=== PATIENT | male | born 1995 | race Caucasian/White ===

== ENCOUNTER 2018-11-03 18:52 | Observation (INO) | payer OTHER ==
[2018-11-03] MEDS ORDERED: Ondansetron 4 MG/2 ML SDV IVPUSH ONE (19:04)
[2018-11-03] MEDS ORDERED: Morphine 2 MG/ML Syringe IVPUSH ONE ×2 (19:04→20:08)
[2018-11-03] MEDS ORDERED: Diphtheria,Pertussis(Acell),Tetanus Vaccine 0.5 ML Syringe IM ONE (19:04)
[2018-11-03] MEDS ORDERED: Morphine 4 MG/ML Syringe ONE (19:05)
[2018-11-03] MEDS ORDERED: Sodium Chloride 0.9% 1,000 ML IV ONE (19:05)
[2018-11-03] MEDS ORDERED: Ondansetron 4 MG/2 ML SDV ONE (19:06)
[2018-11-03] MEDS ORDERED: cefTRIAXone 1 GM in Premix Bag 1 BAG IV ONE (19:08)
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
[2018-11-03] MEDS ORDERED: Silver Sulfadiazine 1% Crm 400 GM Jar ONE (19:36)
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
[2018-11-03] MEDS ORDERED: Silver Sulfadiazine 1% Crm 400 GM Jar TOP ONE (19:37)
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
[2018-11-03] MEDS ORDERED: Morphine 2 MG/ML Syringe ONE (20:10)
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
[2018-11-03 20:26] LABS: BLOOD UREA NITROGEN,BUN 22 mg/dL (7.0-18.0); CARBON DIOXIDE,CO2 19.3 mmol/L (21.0-32.0); CHLORIDE,CL 103 mmol/L (98-107); GLUCOSE RANDOM 142 mg/dL (74-106); POTASSIUM,K 3.7 mmol/L (3.5-5.1); SODIUM,NA 139 mmol/L (136-148)
[2018-11-03] MEDS ORDERED: Clindamycin Phosphate in D5W 50 ML IV SCH ×2 (21:00→22:00)
[2018-11-03] MEDS ORDERED: Morphine 4 MG/ML Syringe IVPUSH PRN (21:34)
[2018-11-03] MEDS ORDERED: Sodium Chloride 0.9% 1,000 ML IV SCH (21:45)
--- NOTE | 2018-11-03 22:39 | PCM.SN ---
- Free Text/Narrative Note: Pt awaited imaging work up in ED; Pt was admitted to my service after workup by ED. C spine, unremarkable, TS spine, T4,T5,T6 vert body fx, vertibral alignment is normal; Abd and pelvis, unremarkable, head CT, unremarble. Called to talked to neurosurgery in [facility], who recommended to transfer to his service.
[2018-11-03] MEDS ORDERED: Morphine 2 MG/ML Syringe IVPUSH PRN (23:17)
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
== END 2018-11-03 23:45 ==
LOC: MW.ED 18:52 → MW.MS 20:33
PROVIDERS: ADMIT Surgery; ATTEND Surgery
DX: S06.9X9A Unspecified intracranial injury with loss of consciousness of unspecified duration, initial encounter (principal); S22.041A Stable burst fracture of fourth thoracic vertebra, initial encounter for closed fracture; S22.051A Stable burst fracture of T5-T6 vertebra, initial encounter for closed fracture; S41.102A Unspecified open wound of left upper arm, initial encounter; S41.101A Unspecified open wound of right upper arm, initial encounter; S81.801A Unspecified open wound, right lower leg, initial encounter; S81.802A Unspecified open wound, left lower leg, initial encounter; R51 Headache; M54.9 Dorsalgia, unspecified; R10.9 Unspecified abdominal pain; V28.4XXA Motorcycle driver injured in noncollision transport accident in traffic accident, initial encounter; Y92.411 Interstate highway as the place of occurrence of the external cause
CPT/HCPCS: 36415; 70450; 71045; 71260; 72125; 72128; 72131; 72170; 74177; 80053; 82550; 84484; 85025; 85610; 86850; 86900; 86901; 87040; 90715; 93005; A9270; G0480; J0696; J2270; J2405; J3490; J7040